=== PATIENT | male | born 1975 | race Caucasian/White ===

== ENCOUNTER → 2018-08-27 14:17 | Outpatient (CLI) | payer OTHER, SELFPAY ==
--- NOTE | 2018-08-27 | DI.RAD.S_ITS ---
PROCEDURE: XR LUMBAR SPINE 2-3V INDICATIONS: LEFT SIDED SCIATICA TECHNIQUE: 3 views of the lumbar spine were acquired. COMPARISON: None. FINDINGS: Bones: 5 nei-did-uleudzo vertebrae are present. There is normal bony alignment. No vertebral body compression fractures. No suspicious bony lesions. Soft tissues: Overlying bowel gas pattern is normal. No suspicious soft tissue calcifications. IMPRESSION: No compression fracture found. Moderate degenerative disc disease and facet osteoarthritis at L4-5 and especially L5-S1 where spinal and foraminal stenosis likely is present. A definite source of asymmetric left-sided predominance is not seen. Dictated by: Renny Peraza M.D. on 08/27/2018 at 15:56 Approved by: Renny Peraza M.D. on 08/27/2018 at 15:57
== END ==
PROVIDERS: PCP Family Medicine; Visit Provider Family Medicine
DX: M51.36 Other intervertebral disc degeneration, lumbar region (principal)
CPT/HCPCS: 72100

== ENCOUNTER 2019-12-22 09:12 | Day surgery (SDC) | payer OTHER, SELFPAY ==
[2019-12-16 12:14] VITALS: BMI 25.4
[2019-12-22] VITALS (7 sets, daily range): BP systolic 121–143; BP diastolic 71–94; PULSE 67–84; RESP 10–81; TEMP 36.1–36.7; O2SAT 11–100; BMI 25.0
--- NOTE | 2019-12-22 09:25 | PM.PREOP ---
Pre-operative Note COVID-19 COVID-19 status: Negative Result date/Date tested (Pos, Neg/Pending): 12/19/19 Interval Note History & Physical reviewed/Exam performed by Physician: Yes Changes to H&P: No
[2019-12-22] MEDS: LACTATED RINGERS 1,000 ML 42 ML IV (09:30)
[2019-12-22] MEDS: CEFAZOLIN 2 GM/100 ML FROZ.PIGGY IV (09:50)
--- NOTE | 2019-12-22 10:08 | SUR.OPER ---
Supine on padded OR bed, head on pillow, arms secured on padded arm boards at <90 degrees abduction, legs uncrossed, safety belt at thigh.
[2019-12-22] MEDS: BUPIVACAINE 0.25% (PF) VIAL 30 ML INJ (10:14)
--- NOTE | 2019-12-22 11:17 | PM.OP.1 ---
Operative Date/Time/Diagnoses Date of procedure: 12/22/19 Time of procedure: 11:17 Pre-op diagnosis: Right inguinal hernia Post-op diagnosis: same Procedure & Clinicians Procedure: Open right inguinal hernia repair Same procedure as scheduled: Yes Indications: 44-year-old male with a symptomatic reducible right inguinal hernia Surgeon: Reaagn Ochoa Yes if Unassisted: Yes Anesthesia Type: General Operative Notes Findings: Direct floor defect, no indirect hernia Specimen(s): none sent Estimated Blood Loss (mL): 20 Procedure in detail: The patient was placed supine on the table and bilateral lower extremity compression devices were applied. Anesthesia was induced they were intubated with an LMA and received 2g of Ancef. A time-out was performed. They were prepped and draped in sterile fashion. The right external inguinal ring and the anterior superior iliac crest were identified and marked. 1 finger breath above the right inguinal ligament the skin was infiltrated with 0.25% bupivacaine. The skin incision was made here and the subcutaneous tissues were divided with electrocautery exposing the external oblique aponeurosis which was then opened along the direction of its fibers. The ilioinguinal nerve was identified on the anterior aspect of the cord and protected. Using a kittner cord was carefully dissected away from the inguinal canal adjacent to the pubic tubercle. The cord was freed and encircled with a Warwick drain. A direct floor defect was identified. I identified the iliohypogastric nerve emerging through the medial aspect of the external oblique aparoneurosis. The cremasteric fibers surrounding the cord were divided using electrocautery. The vas deferens and the testicular vessels were preserved and protected. There was no evidence of an indirect hernia. A plug of Prolene mesh was placed into the floor defect and secured with Vicryl suture. I selected a 7x 15 cm lightweight Pro Loop hernia mesh. The inferior medial aspect of the mesh was anchored to the periosteum of the pubic tubercle such that there was approximately 2 cm of tubercle overlap with 0 Prolene and then was run continuously along the inferior edge of the mesh to the shelving edge of the inguinal ligament. Interrupted 3 0 Vicryl suture was used to anchor the superior aspect of the mesh to the conjoined tendon in several places. The tails were then reapproximated around the spermatic cord loosely. The tails of the mesh were then tucked under the external oblique aponeurosis. The repair was checked for hemostasis. The wound was irrigated with sterile saline. The external oblique aponeurosis was reapproximated in a running fashion using 3 0 Vicryl. The subcutaneous tissues were reapproximated with 3 0 Vicryl skin closed with 4 0 Monocryl followed by the application of Dermabond. At the end of the operation ensure that both testicles were within the scrotum. The sponge instrument count at the end operation was correct. The patient emerged from anesthesia was extubated and transferred to the postoperative care unit in stable condition. A total of 30 ml of of 0.25% bupivicaine was used to infiltrate the skin. Complications: none Post-operative Condition: stable Disposition: same day surgery
[2019-12-22] MEDS: ONDANSETRON 4 MG/2 ML INJ IV (11:34)
[2019-12-22] MEDS: OXYCODONE/ACETAMINOPHEN 5/325 TABLET 1 TAB PO (11:34)
--- NOTE | 2019-12-22 12:07 | SUR.PHASEII ---
Mom given prescription to fill, pt given crackers and water per request, dressing c/d/i.
--- NOTE | 2019-12-22 12:51 | SUR.PHASEII ---
Late entry: Mom returned with med filled. Pt ready to go, dressing to r groin remained c/d/i. Left when ready and left in stable condition.
== END 2019-12-22 12:24 | disposition home or self-care (01) ==
PROVIDERS: PCP Family Medicine; Referring Provider Family Medicine; Visit Provider Surgery
PROC: (CPT 49505; principal; 2019-12-22 09:45)
DX: K40.90 Unilateral inguinal hernia, without obstruction or gangrene, not specified as recurrent (principal)
CPT/HCPCS: 49505; C1781; J0690; J1100; J1885; J2250; J2405; J2704; J3010

== ENCOUNTER → 2024-09-15 10:04 | Outpatient (CLI) | payer OTHER, SELFPAY ==
--- NOTE | 2024-09-15 10:09 | DI.CT.S_ITS ---
PROCEDURE: CT ABDOMEN PELVIS WO CON INDICATIONS: INGUINAL HERNIA TECHNIQUE: Axial sections were acquired from the lung bases to the pubic symphysis. Coronal and sagittal reformats were performed. For radiation dose reduction, the following was used: automated exposure control, adjustment of mA and/or kV according to patient size. COMPARISON: None. FINDINGS: Image quality: Diagnostic. Lower Chest: No significant findings. URINARY: Right Kidney: No stones or hydronephrosis. Right Ureter: No hydroureter. Left Kidney: No stones or hydronephrosis. Left Ureter: No hydroureter. Bladder: The bladder wall is mildly thickened, likely due to lack of distention. There are no significant pericystic soft tissue inflammatory changes to suggest cystitis.. No stones. ABDOMEN: Liver: No contour-deforming solid mass. Gallbladder: No radiopaque gallstones or wall thickening. Biliary ducts: No biliary dilation. Pancreas: No ductal dilation. Spleen: Size is within normal limits. Adrenal Glands: No adrenal nodules. Stomach and Bowel: Normal colonic caliber, without significant wall thickening. Peritoneum: No abnormal intraperitoneal fluid. No free air. Ventral Wall: No hernia. Abdominal Nodes: No enlarged retroperitoneal or mesenteric lymph nodes. Vessels: Aorta and inferior vena cava are normal in size. PELVIS: Pelvic Organs: Unremarkable. Pelvic Nodes: Unremarkable. Miscellaneous: No inguinal hernias are seen. Bones: There is a left total hip arthroplasty in place. IMPRESSION: No obstructing stones or hydronephrosis. Dictated by: Marcial Flores M.D. on 09/15/2024 at 10:57 Approved by: Marcial Flores M.D. on 09/15/2024 at 11:06
== END ==
PROVIDERS: PCP Family Medicine; Referring Provider Family Medicine; Visit Provider Family Medicine
DX: K40.90 Unilateral inguinal hernia, without obstruction or gangrene, not specified as recurrent (principal)
CPT/HCPCS: 74176